=== PATIENT | female | born 1955 | race Two or more races ===

== ENCOUNTER 2022-10-22 10:01 | Outpatient (CLI) | payer OTHER | END 2022-10-22 10:20 | disposition home or self-care (01) | LOC: RAD 10:01 | PROVIDERS: ATTEND Specialist | DX: N60.39 Fibrosclerosis of unspecified breast (principal); Z12.39 Encounter for other screening for malignant neoplasm of breast; N21.8 Other lower urinary tract calculus; J45.998 Other asthma ==

== ENCOUNTER → 2022-10-22 | Outpatient (CLI) | payer OTHER | END | disposition home or self-care (01) | LOC: NUCLEAR 11:16 | PROVIDERS: ATTEND Specialist | DX: M81.0 Age-related osteoporosis without current pathological fracture (principal) ==

== ENCOUNTER 2023-01-20 11:05 | Outpatient (CLI) | payer OTHER | END 2023-01-20 11:10 | disposition home or self-care (01) | LOC: SONOGRAMA 11:05 | PROVIDERS: ATTEND Specialist | DX: N20.0 Calculus of kidney (principal) ==

== ENCOUNTER 2023-09-01 11:06 | Outpatient (CLI) | payer OTHER | END 2023-09-01 13:08 | disposition home or self-care (01) | LOC: MRI 11:06 | PROVIDERS: ATTEND Specialist | DX: S83.249A Other tear of medial meniscus, current injury, unspecified knee, initial encounter (principal); E03.9 Hypothyroidism, unspecified | CPT/HCPCS: 73718 ==

== ENCOUNTER 2024-02-23 12:22 | Outpatient (CLI) | payer OTHER | END 2024-02-23 12:30 | disposition home or self-care (01) | LOC: MAMO-SONO 12:22 | PROVIDERS: ATTEND Specialist | DX: N60.39 Fibrosclerosis of unspecified breast (principal); Z12.39 Encounter for other screening for malignant neoplasm of breast; Z12.31 Encounter for screening mammogram for malignant neoplasm of breast ==

== ENCOUNTER 2025-04-14 10:05 | Outpatient (CLI) | payer OTHER | END 2025-04-14 10:08 | disposition home or self-care (01) | LOC: SONOGRAMA 10:05 | PROVIDERS: ATTEND Specialist | DX: E03.9 Hypothyroidism, unspecified (principal) ==

== ENCOUNTER 2025-05-16 10:53 | Outpatient (CLI) | payer OTHER | END 2025-05-16 10:59 | disposition home or self-care (01) | LOC: MAMO-SONO 10:53 | PROVIDERS: ATTEND Specialist | DX: N60.39 Fibrosclerosis of unspecified breast (principal); Z12.39 Encounter for other screening for malignant neoplasm of breast; Z12.31 Encounter for screening mammogram for malignant neoplasm of breast ==